=== PATIENT | female | born 1990 | race Asian ===

== ENCOUNTER 2024-02-16 04:44 | Emergency (ER) | payer OTHER ==
[~2024-02-16] VITALS: Ht 165.1 cm; Wt 96.6 kg
[2024-02-16 05:02] VITALS: O2SAT 99
[2024-02-16 05:34] LABS: BASOPHILS % 0.8 % (0.0-2.0); EOSINOPHILS % 2.6 % (0.0-5.0); HEMATOCRIT. 34.3 % (36.0-48.0); HEMOGLOBIN. 11.6 g/dL (12.0-16.0); LYMPHOCYTES % 21.6 % (20.0-50.0); MEAN CORPUSCULAR HEMOGLOBIN 27.4 pg (28.0-32.0); MEAN CORPUSCULAR HGB CONC 33.7 g/dL (31.0-37.0); MEAN CORPUSCULAR VOLUME 81.3 fL (81.0-99.0); MEAN PLATELET VOLUME 7.4 fl (7.4-10.4); MONOCYTES % 9.3 % (2.0-8.0); NEUTROPHILS % 65.7 % (40.0-76.0); PLATELET 352 x1000/uL (130-400); RED BLOOD CELL COUNT 4.21 mill/uL (4.2-5.4); RED CELL DISTRIBUTION WIDTH 16.1 % (11.6-14.6); WHITE BLOOD COUNT 10.1 x1000/uL (4.5-11.0)
[2024-02-16 05:51] LABS: CHLORIDE 108 mEq/L (98-107); POTASSIUM 3.6 mEq/L (3.5-5.1); SODIUM 135 mEq/L (136-145)
[2024-02-16 05:52] LABS: CALCIUM 8.7 mg/dL (8.7-10.4); CARBON DIOXIDE 18 mEq/L (21-32)
[2024-02-16 05:57] LABS: CREATININE 0.5 mg/dL (0.6-1.0); GLUCOSE 82 mg/dL (70-105); UREA NITROGEN BLOOD 7 mg/dL (9-23)
[2024-02-16 05:59] LABS: ALANINE AMINOTRANSFERASE 19 IU/L (10-49); ALBUMIN 4.4 g/dL (3.2-4.8); ASPARTATE AMINOTRANSFERASE 22 IU/L (<34); BILIRUBIN TOTAL 0.3 mg/dL (0.1-1.0); PROTEIN TOTAL 7.8 g/dL (6.0-8.3)
[2024-02-16 06:31] LABS: B-HCG QUANTITATIVE 73730 mIU/mL (<3)
[2024-02-16 06:59] LABS: CLARITY URINE CLOUDY (CLEAR); COLOR URINE ORANGE (YELLOW); GLUCOSE URINE NEGATIVE (NEGATIVE); KETONES URINE TRACE (NEGATIVE); LEUKOCYTE ESTERASE URINE 1+ (NEGATIVE); NITRITE URINE NEGATIVE (NEGATIVE); OCCULT BLOOD URINE 3+ (NEGATIVE); PROTEIN URINE 2+ (NEGATIVE)
[2024-02-16 07:31] LABS: *AMPHETAMINES SCREEN URINE NEGATIVE (NEGATIVE); *BARBITURATES SCREEN URINE NEGATIVE (NEGATIVE); *BENZODIAZEPINES SCREEN URINE NEGATIVE (NEGATIVE); *COCAINE SCREEN URINE NEGATIVE (NEGATIVE); METHADONE URINE SCREEN Neg (NEGATIVE); OPIATES URINE SCREEN NEGATIVE (NEGATIVE)
[2024-02-16 07:32] LABS: CANNABINOID URINE SCREEN NEGATIVE (NEGATIVE); ECSTASY MDMA SCREEN URINE NEGATIVE (NEGATIVE); PHENCYCLIDINE URINE SCREEN NEGATIVE (NEGATIVE)
[2024-02-16 07:55] LABS: SQUAMOUS EPITHELIAL CELL URINE FEW /lpf (RARE/1+)
[2024-02-16 07:59] LABS: RBC URINE 50-100 /hpf (0-2)
[2024-02-16 08:02] LABS: BACTERIA URINE NONE SEEN
[2024-02-16] MEDS: LACTATED RINGERS 1,000 ML IV SCH (10:01)
[2024-02-16 10:58] VITALS: BP 112/72; PULSE 60; RESP 19; TEMP 98.5
== END 2024-02-16 11:25 | disposition short-term general hospital (02) ==
LOC: ER 05:11
DX: O46.92 Antepartum hemorrhage, unspecified, second trimester (principal); Z3A.18 18 weeks gestation of pregnancy
CPT/HCPCS: 80053; 80305; 81003; 84702; 85025; 86850; 86900; 86901; 36415; 76830; 76856; 96360; 99285; Z7610